=== PATIENT | female | born 1960 | race Caucasian/White ===

== ENCOUNTER → 2018-08-24 | Outpatient (CLI) | payer OTHER | LOC: MC.RAD 07:40 | DX: Z12.31 Encounter for screening mammogram for malignant neoplasm of breast (principal) ==

== ENCOUNTER → 2019-11-28 | Outpatient (CLI) | payer OTHER | LOC: MC.RAD 15:30 | DX: Z12.31 Encounter for screening mammogram for malignant neoplasm of breast (principal) ==

== ENCOUNTER 2020-06-28 05:52 | Day surgery (SDC) | payer OTHER ==
[~2020-06-28] VITALS: Ht 172.7 cm; Wt 73.8 kg
[2020-06-28 06:33] VITALS: BP 128/78; PULSE 81; TEMP 98.2
[2020-06-28] MEDS ORDERED: CELEBREX 200MG200 MG PO (06:40)
[2020-06-28] MEDS ORDERED: GINGER500 MG PO (06:41)
[2020-06-28] MEDS ORDERED: TURMERIC500 MG PO (06:42)
--- NOTE | 2020-06-28 06:43 | NUR ---
TO RM AT 0612- CALL LIGHT IN REACH. WILL CALL TO JEWELRY ENAMELER AFTER PROCEDURE.
[2020-06-28] MEDS ORDERED: NORCO 325 MG-51 TAB PO (08:37)
[2020-06-28 09:45] VITALS: BP 123/93; PULSE 66; TEMP 97.5
--- NOTE | 2020-06-28 09:45 | NUR ---
TO RM 6 PER CART FROM PACU PER CART. ORIENTED X3, TALKING WITH STAFF. A BIT DROWSY AND FALLS BACK TO SLEEP. C/O PAIN ABOUT 5/10, DENIES NEED FOR PAIN MED AT THIS TIME. DENIES NAUSEA.
[2020-06-28 10:00] VITALS: BP 130/62; PULSE 60
--- NOTE | 2020-06-28 10:00 | NUR ---
EATING A FEW ICE CHIPS.
[2020-06-28 10:15] VITALS: BP 109/60; PULSE 62
--- NOTE | 2020-06-28 10:15 | NUR ---
INCISION SITE CONTINUES CLEAN DRY INTACT.
[2020-06-28 10:30] VITALS: BP 121/67; PULSE 68
--- NOTE | 2020-06-28 10:30 | NUR ---
ATE CRACKERS AND 2 GLASSES OF WATER AND TOLERATED WELL. PATIENT VOIDED IN PACU PRIOR TO RETURNING TO . PATIENT STATED " I CAN JUST SLEEP AT HOME INSTEAD OF HERE."
--- NOTE | 2020-06-28 11:23 | NUR ---
RECEIVED DISCHARGE INSTRUCTIONS AND VERBALIZED UNDERSTANDING WITH AT BEDSIDE. DISCONTINUED IV AND INT PATIENT GETTING DRESSED.
--- NOTE | 2020-06-28 11:35 | NUR ---
DISCHARGED PER WC BY NURSING STAFF TO PRIVATE CAR IN CARE OF LUCIA.
[2020-06-28 14:05] VITALS: BP 127/82; PULSE 65
== END 2020-06-28 11:45 | disposition home or self-care (01) ==
LOC: SDCO 05:52
DX: K80.10 Calculus of gallbladder with chronic cholecystitis without obstruction (principal); Z80.1 Family history of malignant neoplasm of trachea, bronchus and lung; M19.90 Unspecified osteoarthritis, unspecified site; Z20.828 Contact with and (suspected) exposure to other viral communicable diseases
CPT/HCPCS: J1100; J1885; J2405; J2550; J2704; J2710; J3010; J7120

== ENCOUNTER → 2021-01-29 | Outpatient (CLI) | payer OTHER ==
[~2021-01-29] MED LIST: CELEBREX 200MG200 MG PO; GINGER500 MG PO; NORCO 325 MG-51 TAB PO; TURMERIC500 MG PO
== END ==
LOC: MC.RAD 10:56
DX: Z12.31 Encounter for screening mammogram for malignant neoplasm of breast (principal)

== ENCOUNTER → 2022-11-30 | Outpatient (CLI) | payer OTHER | LOC: MC.RAD 09-30 09:15 | DX: Z12.31 Encounter for screening mammogram for malignant neoplasm of breast (principal) ==

== ENCOUNTER → 2023-12-01 | Outpatient (CLI) | payer OTHER | LOC: MC.RAD 07:25 | DX: Z12.31 Encounter for screening mammogram for malignant neoplasm of breast (principal) ==